=== PATIENT | female | born 1980 | race Caucasian/White ===

== ENCOUNTER 2024-03-20 09:24 | Emergency (ER) | payer BC, SELFPAY ==
[2024-03-20 09:38] VITALS: BP 105/83
--- NOTE | 2024-03-20 09:52 | ED.GENMED ---
History of Present Illness
General
Chief Complaint: Skin Surface Trauma
Source: patient
Exam Limitations: none
Time Seen by Provider: 03/20/24 09:49
Nursing documentation reviewed up to this point in time: agreed with
History of Present Illness
History of Present Illness:
43-year-old female presenting to the emergency department with laceration to the right grove occurring approximate 1 hour prior to arrival. Patient states that she was at the gym earlier this morning when she was doing box jumps, missed the box
striking her right grove. Patient did complete her workout although noted that there was persistent bleeding and came to the emergency department for further evaluation.
Patient denies any other associated injuries. Patient denies any numbness/tingling in right lower extremities.
Last tetanus shot unknown
Past History
Social History
Tobacco: Non-smoker
Personal:
Living: with family
Review of Systems
Review of Systems
Allergies reviewed?: Yes
All Other Systems: ROS reviewed and negative except as documented in HPI and ROS
Phy Exam
Physical Exam
Physical Exam:
Vitals: Patient's vital signs are stable. Afebrile
General: Patient is well appearing, no acute distress
Skin: Approximately 3 cm vertically oriented linear laceration on anterior aspect of right lower leg.
Head: Normocephalic, atraumatic
Throat: Protecting airway
Neck: Normal ROM, no cervical spine tenderness
Cardiac: Regular rate
Pulm: No apparent respiratory distress
Abdomen: Nondistended
Extremities: Laceration to right lower leg as mentioned above. No bony tenderness of right lower extremity. Right lower extremity neurovascular intact.
Neuro: Grossly intact
Psychiatric: Normal affect.
Course
Orders/Labs/Results
Orders:
Orders
03/20/24 09:56
Tetanus/Diphth/Acelpertussis [Adacel] 0.5 ml IM .ONCE ONE
Vital Signs
Initial and Last Documented VS:
Initial Vital Signs
Temp Pulse Resp BP Pulse Ox
98.2 F 88 16 105/83 96
03/20/24 09:38 03/20/24 09:38 03/20/24 09:38 03/20/24 09:38 03/20/24 09:38
Last Documented Vital Signs
Temp Pulse Resp BP Pulse Ox
98.2 F 88 16 105/83 96
03/20/24 09:38 03/20/24 09:38 03/20/24 09:38 03/20/24 09:38 03/20/24 09:38
Procedures
Laceration Closure
Right Lower Leg:
Status of Wound: clean
Size of Wound in cm: 3
Description of Wound Edges: sharp
Preparation: cleaned with saline and cleaned with Betadine
Anesthesia: 1% Lidocaine with epi
Revision/Debridement: routine- no revision
Wound exploration: explored to base- no FB
Type of Closure: single layer closure
Skin Closure Material: 4-0 nylon
Number of sutures: 4
MDM/Problems Addressed
Differential Diagnosis Includes:
Not limited to: Laceration, etc.
MDM/Problems Addressed:
43-year-old female presenting with superficial laceration to right lower leg. No other injuries. Vital stable. Exam as above. Tetanus shot updated. Laceration irrigated with normal saline. Closed with 4 simple interrupted 4-0 nylon sutures.
Wound edges well-approximated. Patient tolerated procedure well. Wound care discussed at length with patient. Patient will follow-up with PCP/urgent care for suture removal. Discussed monitoring for signs of infection. Patient stable for
discharge. Ambulating without difficulty out of department.
Chronic conditions affecting care:
N/A
Acute Exacerbation and/or Progression of Chronic Illness:
N/A
*Pulse Oximetry
Patient hypoxic: no
*EKG
Interpreted by ED Provider?: NA
*Charcoal Kiln Burner Interpretation
Rate: Charcoal Kiln Burner- N/A
*Critical Care Note
Total Time (30-74mins, 75-104mins- exclusive of procedures): Not Applicable
ED Attending Note
-
Portions of this chart may have been created with voice recognition software.� Occasional wrong word or��sound alike� substitutions may have occurred due to the inherent limitations of voice recognition software.
Discharge Plan
Departure
Patient Disposition: Home (Routine Discharge)
Date of Disposition: 03/20/24
Time of Disposition: 10:35
Patient with high blood pressure during this ER visit?: Yes
Condition: Good
Covid-19: Not Applicable
Discharge Problem:
Laceration of right lower extremity
Instructions: Wound Care (DC), Laceration Repair With Stitches (DC)
Activity Restrictions/Additional Instructions:
RETURN TO THE EMERGENCY DEPARTMENT WITH ANY SIGNS OF INFECTION INCLUDING FEVER, SIGNIFICANT PAIN, REDNESS, OR SWELLING AROUND WOUND, RED STREAKING AROUND WOUND, PUS DRAINING FROM WOUND, OR ANY OTHER CONCERNS
-As discussed/the stitches will need to be removed in approximately 10 days. You can have this done at your primary care, urgent care, or in emergency department
-You should keep wound clean, dry, and covered until stitches are removed. Keep current bandage on for 24 hours then begin washing gently daily with soap and water. You can apply antibiotic ointment to wound.
-Follow-up with your primary care for further evaluation/management if needed/for suture removal.
Monitor your symptoms closely and return to the emergency department with any acute worsening/new symptoms
Interventions
Interventions:
*Risk Screen - Suicide Last Done: 03/20/24 10:32
*General Assessment Last Done: 03/20/24 10:32
*Neglect/Abuse Screening Last Done: 03/20/24 10:32
ED- Fall Risk Assessment Last Done: 03/20/24 10:32
*ED COVID-19 Vaccine History Last Done: 03/20/24 10:32
*Nursing Disposition Last Done: 03/20/24 10:49
ED-Skin Assessment Last Done: 03/20/24 10:32
Discharge Date and Time
Discharge Date/Time: 03/20/24 10:49
Print Language: MALAY
[2024-03-20] MEDS: ADACEL 0.5 ML IM (10:41)
== END 2024-03-20 10:49 | disposition home or self-care (01) ==
LOC: EMR 09:24
PROVIDERS: EMERGENCY PHYSICIAN Emergency Medicine; FAMILY PHYSICIAN Family Medicine
DX: S81.811A Laceration without foreign body, right lower leg, initial encounter (principal); W22.8XXA Striking against or struck by other objects, initial encounter; Z23 Encounter for immunization
CPT/HCPCS: 12002; 90471; 99282; 90715

== ENCOUNTER → 2025-05-05 14:57 | Outpatient (REF) | payer BC, SELFPAY | LOC: WDC 14:57 | PROVIDERS: ATTENDING PHYSICIAN Obstetrics & Gynecology Gynecology; FAMILY PHYSICIAN Internal Medicine | DX: Z12.31 Encounter for screening mammogram for malignant neoplasm of breast (principal) | CPT/HCPCS: 77063; 77067 ==